=== PATIENT | male | born 1950 | race Caucasian/White ===

== ENCOUNTER 2019-10-03 17:13 | Emergency (ER) | payer MEDICARE ==
[~2019-10-03] VITALS: Ht 190.5 cm; Wt 113.4 kg
[~2019-10-03 17:13] MED LIST: AMIO200T42 PO; AMIODARONE; ASPI-496 PO; ATOR-2 PO; CARV-39 PO; CARVEDILOL PO; CHOL10003 PO; CLOP75TA PO; CYAN500T18 PO; FURO20TA3 PO; INSU100I11 SQ-INSULIN; INSU100V8 SQ; LASIX; LEVO175T5 PO; LEVODOPA; LEVOTHYROXINE PO; LISI-167 PO; LISINOPRIL; MEXI200C PO; ROSU20TA2 PO; ROSUVASTATIN; SODI325T PO
--- NOTE | 2019-10-03 17:16 | NUR ---
1709 code neuro paged 1710 dr rivers paged 1715 dr rivers returned call and spoke with dr gray
--- NOTE | 2019-10-03 17:32 | NUR ---
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 PT WAS ADMITTED WITH A CVA GIVEN TPA ON .
[2019-10-03] MEDS ORDERED: OMNIPAQUE 350 MG/ML, 100ML BOTTLE ONE (17:42)
--- NOTE | 2019-10-03 17:54 | NUR ---
1733-COMING BACK FROM CT PT STARTED MOVING UPPER LEFT SIDE EXTREMITY, GAZE LESS FIXED BUT STILL FAVORING RIGHT SIDE. ASKED NAME AND BIRTHDAY, VERY SLOW TO RESPOND WITH SLURRED SPEECH BUT ANSWERED CORRECTLY. WHEN COMING [place] TO ROOM ED UPDATED. FRIENDS AT BEDSIDE. VSS. WILL CONTINUE TO MONITOR
[2019-10-03 18:02] LABS: BASOPHILS # (AUTO) 0.09 x10^3/uL (0-0.1); BASOPHILS % (AUTO) 1 % (0-1); EOSINOPHILS % (AUTO) 3 % (1-7); LYMPHOCYTES # (AUTO) 3.75 x10^3/uL (1-3.4); LYMPHOCYTES % (AUTO) 35 % (22-44); MD NO; MEAN CORPUSCULAR HEMOGLOBIN 32.1 pg (27.5-34.5); MEAN CORPUSCULAR HGB CONC 33.5 g/dL (33.2-36.2); MEAN CORPUSCULAR VOLUME 95.7 fL (81-97); MEAN PLATELET VOLUME 8.4 fL (7.4-10.4); MONOCYTES # (AUTO) 1.28 x10^3/uL (0.2-0.8); MONOCYTES % (AUTO) 12 % (2-9); NEUTROPHILS # (AUTO) 5.29 x10^3/uL (1.8-6.8); NEUTROPHILS % (AUTO) 49 % (42-75); PLATELET COUNT 242 x10^3/uL (130-400); RED BLOOD COUNT 4.55 x10^6/uL (4.38-5.82); RED CELL DISTRIBUTION WIDTH 13.8 % (9.4-14.8)
--- NOTE | 2019-10-03 18:08 | NUR ---
MD TO BEDSIDE TO DISCUSS WITH PT AND FRIEND TRANSFERING TO [facility]. CURRENTLY PT IS A&OX2, ABLE TO FOLLOW COMMANDS. DEMINISHED SENSATION ON LEFT SIDE. SEVERE WEAKNESS ON LEFT BUT ABLE TO MOVE EXTREMITY. VSS AT THIS TIME. AWAITING TRANSFER
[2019-10-03 18:10] VITALS: BP 135/76
[2019-10-03 18:11] LABS: INTERNATIONAL NORMALIZED RATIO 1.04 (0.93-1.1)
--- NOTE | 2019-10-03 18:21 | NUR ---
DISCUSSION WITH DR. URIAS FROM NEUROLOGY, UPDATED ON PT STATUS. AWAITING IR FROM [facility] AT THIS TIME. VSS. WILL CONTINUE TO MONITOR
--- NOTE | 2019-10-03 18:46 | NUR ---
REPORT GIVEN TO RENMARILEE STAPLES RN. PT TO BE TRANSFERED FOR IR.
[2019-10-03] MEDS ORDERED: SODIUM CHLORIDE 0.9% 1,000ML IVBOLUS ONE (19:00)
== END 2019-10-03 19:07 | disposition short-term general hospital (02) ==
LOC: ED 17:45
DX: I63.512 Cerebral infarction due to unspecified occlusion or stenosis of left middle cerebral artery (principal); E11.9 Type 2 diabetes mellitus without complications; I25.2 Old myocardial infarction; E78.00 Pure hypercholesterolemia, unspecified; I11.0 Hypertensive heart disease with heart failure; I50.9 Heart failure, unspecified; E03.9 Hypothyroidism, unspecified; Z87.891 Personal history of nicotine dependence
CPT/HCPCS: 36415; 70450; 70496; 70498; 80047; 82962; 85025; 85610; 85730; 93005; 99291; Q9967